=== PATIENT | female | born 1980 | race African-American/Black ===

== ENCOUNTER 2019-10-07 19:41 | Emergency (ER) | payer OTHER, SELFPAY ==
[2019-10-07] VITALS (11 sets, daily range): BP systolic 112–136; BP diastolic 73–85; PULSE 84–93; RESP 15–34; TEMP 36.9; O2SAT 99–100
--- NOTE | ~2019-10-07 | XR_ITS ---
EXAMINATION: XR chest 1V portable DATE: 10/07/2019 20:32 INDICATION: Chest tightness, cough and COVID 19 positive TECHNIQUE: frontal view of the chest was obtained. COMPARISON: Chest radiograph dated 03/10/2019 FINDINGS: Mild perihilar opacities with bronchial wall thickening. No focal airspace consolidation, pleural eff usion or pneumothorax. The cardiomediastinal silhouette is normal. Visualized bones and soft tissues are unremarkable. IMPRESSION: 1. Mild perihilar opacities with bronchial wall thickening with differential including bronchitis, re active airway disease, minimal pulmonary edema or pneumonia although COVID 19 associated pneumonia mo re typically presents with peripheral patchy opacities. Reviewed, dictated and finalized at location A. IMPRESSION: 1. Mild perihilar opacities with bronchial wall thickening with differential in cluding bronchitis, reactive airway disease, minimal pulmonary edema or pneumon ia although COVID 19 associated pneumonia more typically presents with peripher al patchy opacities.
--- NOTE | 2019-10-07 20:08 | ECG_ITS ---
Measurements Intervals [place] Rate: 85 P: 42 DC: 197 QRS: 30 QRSD: 89 T: 9 QT: 354 QTc: 423 Interpretive Statements SINUS RHYTHM BORDERLINE T WAVE ABNORMALITY- ANT/INF LEADS BASELINE ARTIFACT- I, II, III, AVR, AVL BORDERLINE ECG Electronically Signed On 10-08-2019 6:57:30 CDT by Jamie Mac D.O.
--- NOTE | 2019-10-07 20:16 | ED.ASTHMA ---
HPI - Asthma General Chief Complaint: Asthma <Sydney Mejia PA-C - Last Filed: 10/07/19 21:39> Stated Complaint: Asthma, chest tightness, cough <Sydney Mejia PA-C - Last Filed: 10/07/19 21:39> Time Seen by Provider: 10/07/19 20:00 <Sydney Mejia PA-C - Last Filed: 10/07/19 21:39> Source: patient <DEVON Lea Last Filed: 10/07/19 21:39> Mode of arrival: ambulatory <DEVON Lea Last Filed: 10/07/19 21:39> Limitations: no limitations <Sydney Mejia PA-C - Last Filed: 10/07/19 21:39> History of Present Illness HPI Narrative: This is a 38-year-old female that presents to the emergency department for chest tightness x1 month. Reports she tested positive for cocaine about a month ago. Reports cough and congestion. Also reports chest tightness that has been constant since her diagnosis. Reports some intermittent right-sided chest pain as well. Reports she has been having trouble with asthma attacks. Her primary wanted her to come to the emergency department for further imaging and evaluation before she was released to go back to work. Denies fever. <Sydney Mejia PA-C - Last Filed: 10/07/19 21:39> Related Data Allergies/Adverse Reactions: Allergies Allergy/AdvReac Type Severity Reaction Status Date / Time No Known Allergies Allergy Unverified 10/07/19 19:47 <Sydney Mejia PA-C - Last Filed: 10/07/19 21:39> Review of Systems Review of Systems: Narrative: CONSTITUTIONAL: Denies fever CARDIOVASCULAR: Reports chest pain. Denies edema. RESPIRATORY: Reports cough. Denies dyspnea <Sydney Mejia PA-C - Last Filed: 10/07/19 21:39> All systems reviewed & are unremarkable except as noted in HPI and below <DEVON Lea Last Filed: 10/07/19 21:39> PMFSH Past Medical History Medical History: Medical History (Updated 10/07/19 @ 21:39 by Sydney Mejia PA-C) Abnormal uterine bleeding Anemia Asthma History of eczema Lymphadenopathy Transient ischemic attack Urinary tract infection <Sydney Mejia PA-C - Last Filed: 10/07/19 21:39> Surgical History Surgical History: Surgical History (Updated 03/10/19 @ 09:44 by Maggi Medina Panraven) History of section History of hysterectomy History of tubal ligation <Sydney Mejia PA-C - Last Filed: 10/07/19 21:39> Family History Family History: Family History (Updated 01/05/16 @ 10:12 by DOCTOR UNKNOWN) Father Family history of heart disease in male family member before age 55 Malignant neoplasm of prostate Sibling Family history of lymphoma <Sydney Mejia PA-C - Last Filed: 10/07/19 21:39> Social History Social History: Social History Smoking status: Never smoker Alcohol intake: current Gender identity (if verbalized by the patient): Female <Sydney Mejia PA-C - Last Filed: 10/07/19 21:39> Exam Narrative: Exam Narrative: GENERAL: Well-appearing, well-nourished, and in no acute distress. HEAD: Normocephalic, atraumatic. EYES: EOMI. ENT: Nares clear, no rhinorrhea or epistaxis. Mucous membranes moist. Oropharynx without tonsillar hypertrophy exudate or other lesions. Bilateral TMs pearly rubi non-bulging NECK: Supple. No adenopathy or masses. CHEST: Clear to auscultation. No respiratory distress. No wheezes rales or rhonchi HEART: Regular rate and rhythm. No murmur heard. Normal peripheral pulses. EXTREMITIES: Normal range of motion. No edema. SKIN: Warm, dry, no rash. NEURO: No focal deficits. Alert and oriented x3. PSYCH: Normal mood and affect <Sydney Mejia PA-C - Last Filed: 10/07/19 21:39> Course Vital Signs Vital signs: Vital Signs Temperature 36.9 C 10/07/19 19:48 Pulse Rate 92 10/07/19 19:48 Respiratory Rate 17 10/07/19 19:48 Blood Pressure 136/82 10/07/19 19:48 Pulse Oximetry 99 10/07/19 19:48 Temperature 3
[2019-10-07 20:20] LABS: Basophils Percent Auto 0.5 % (0.2-1.2); Eosinophils Percent Auto 0.1 % (0-4.4); Hematocrit 40.7 % (37.0-47.0); Hemoglobin 13.6 g/dL (12.0-15.0); Immature Granulocyte Absolute 0.03 K/mm3 (0.00-0.031); Immature Granulocyte Percent A 0.4 % (0-0.5); Lymphocytes Absolute Auto 2.26 K/mm3 (0.9-3.2); Lymphocytes Percent Auto 27.1 % (18.3-44.2); Mean Corpuscular HGB Conc 33.4 g/dl (32-36); Mean Corpuscular Hemoglobin 30.2 pg (26-34); Mean Corpuscular Volume 90.2 fl (80-100); Mean Platelet Volume 10.8 fl (7.4-10.4); Monocytes Absolute Auto 0.5 K/mm3 (0.1-0.6); Monocytes Percent Auto 5.6 % (2.6-8.5); Neutrophils Absolute Auto 5.5 K/mm3 (1.3-6.7); Neutrophils Percent Auto 66.3 % (45.5-73.1); Platelet Count Result 195 k/mm3 (150-375); Red Blood Count 4.51 M/mm3 (4.2-5.4); Red Cell Distribution Width 12.8 % (11.5-14.5); White Blood Count 8.3 K/mm3 (4.5-10.0)
[2019-10-07 20:31] LABS: Anion Gap 9 mmol/L (8-16); Blood Urea Nitrogen 14 mg/dL (7-17); Calcium 9.4 mg/dL (8.4-10.2); Carbon Dioxide 27 mmol/L (22-30); Chloride 100 mmol/L (98-107); Estimated CRCL calculation 111 ml/min; Estimated Glomerular Filt Rate > 60; Glucose 168 mg/dL (65-105); INR 1.1; Potassium 3.7 mmol/L (3.4-5.0); Prothrombin Time 13.7 Seconds (11.1-14.7); Sodium 136 mmol/L (137-145)
[2019-10-07 20:32] LABS: Partial Thromboplastin Time 28.5 SECONDS (22.3-36.8)
[2019-10-07 20:35] LABS: Lactic Acid Reflex 1.5 mmol/L (0.7-2.1)
[2019-10-07 20:35] LABS: Lactate Dehydrogenase 295 U/L (313-618)
[2019-10-07 20:36] LABS: D Dimer 0.27 ug/mL (<0.48)
[2019-10-07 20:43] LABS: Troponin I < 0.012 ng/mL (0.000-0.034)
[2019-10-08 13:59] LABS: SARS-CoV-2 RNA PCR Negative
== END 2019-10-07 22:09 | disposition home or self-care (01) ==
PROVIDERS: Physician Assistant; Emergency Provider Emergency Medicine
DX: U07.1 COVID-19 (principal); Z86.73 Personal history of transient ischemic attack (TIA), and cerebral infarction without residual deficits
CPT/HCPCS: 36415; 71045; 80048; 82728; 83605; 83615; 84484; 85025; 85380; 85610; 85730; 87635; 93005; 99284; C9803; U0003

== ENCOUNTER 2019-11-26 12:57 | Emergency (ER) | payer OTHER, SELFPAY ==
[2019-11-26] VITALS (10 sets, daily range): BP systolic 117–125; BP diastolic 70–79; PULSE 64–94; RESP 14–19; TEMP 36.1; O2SAT 97–100
--- NOTE | ~2019-11-26 | XR_ITS ---
EXAMINATION: XR chest 2V DATE: 11/26/2019 13:36 INDICATION: Chest pain TECHNIQUE: PA and lateral views of the chest were obtained. COMPARISON: Chest radiograph dated 10/07/2019 FINDINGS: The lungs are clear with no focal airspace opacities, pulmonary edema, pleural effusion or pneumothor ax. The cardiomediastinal silhouette is normal. Visualized bones and soft tissues are unremarkable. IMPRESSION: 1. No acute cardiopulmonary disease. Reviewed, dictated and finalized at location A.
--- NOTE | 2019-11-26 13:15 | ECG_ITS ---
Measurements Intervals [place] Rate: 79 P: 20 IA: 170 QRS: 25 QRSD: 81 T: 15 QT: 374 QTc: 430 Interpretive Statements SINUS RHYTHM EARLY PRECORDIAL R/S TRANSITION BORDERLINE T WAVE ABNORMALITY- ANTERIOR LEADS BORDERLINE ECG Electronically Signed On 11-27-2019 10:35:16 CDT by Jamie Mac D.O.
--- NOTE | 2019-11-26 13:25 | ED.CHESTPAIN ---
HPI - Chest Pain General Chief Complaint: Chest Pain Stated Complaint: CP for 3 days Time Seen by Provider: 11/26/19 13:08 Source: patient Mode of arrival: ambulatory Limitations: no limitations History of Present Illness HPI narrative: This patient is a 39 year old female with history of TIA who presents for evaluation of atypical chest pain. Patient reports intermittent nonradiating left anterior chest pain. This pain has been occuring for 3 days and she describes her pain as sharp. She does not currently have pain . She denies any associated symptoms such as diaphoresis, sob, nausea, vomiting , cough or fever She was evaluated at [facility] yesterday for her chest pain and she was discharged. She states her PCP recommended she come to [place] in case something was missed. Related Data Home Medications Medication Instructions Recorded Confirmed albuterol mcg INHALATION 11/26/19 aspirin 81 mg PO DAILY 11/26/19 fluticasone propionate [Flovent] 1 puff INHALATION BID 11/26/19 Allergies Allergy/AdvReac Type Severity Reaction Status Date / Time No Known Allergies Allergy Unverified 10/07/19 19:47 Review of Systems Review of Systems: All systems reviewed & are unremarkable except as noted in HPI and below Constitutional: Constitutional: Denies chills and Denies fever(s) Cardiovascular: Cardiovascular: Reports chest pain, Denies rapid heart rate and Denies radiating jaw, neck or arm pain Respiratory: Respiratory: Denies cough and Reports dyspnea (chronic intermittent due to asthma) Gastrointestinal: Gastrointestinal: Denies abdominal pain, Denies nausea and Denies vomiting PMFSH Past Medical History Medical History (Updated 11/26/19 @ 17:38 by Sonya Cao MD) Abnormal uterine bleeding Anemia Asthma History of eczema Lymphadenopathy Transient ischemic attack Urinary tract infection Surgical History Surgical History (Updated 03/10/19 @ 09:44 by Maggi MedinaLomaki) History of section History of hysterectomy History of tubal ligation Family History Family History (Updated 01/05/16 @ 10:12 by DOCTOR UNKNOWN) Father Family history of heart disease in male family member before age 55 Malignant neoplasm of prostate Sibling Family history of lymphoma Social History Social History Smoking status: Never smoker Alcohol intake: current Gender identity (if verbalized by the patient): Female Exam Narrative: Exam Narrative: GENERAL: Well-appearing, well-nourished, and in no acute distress. HEAD: Normocephalic, atraumatic NECK: Supple, without lymphadenopathy or mass RESPIRATORY: No respiratory distress, Airway patent, Respirations non-labored, Clear to auscultation without rales, rhonchi or wheeze HEART: Regular rate and rhythm. No murmur heard. Normal peripheral pulses. ABDOMEN: Soft, nontender, nondistended, normal active bowel sounds. No masses. No rebound or guarding, No organomegaly. EXTREMITIES: No edema, normal strength with full range of motion. SKIN: Warm, dry, normal color without rash NEURO: Alert and oriented x3. CN 2-12 grossly intact. No focal deficits. PSYCH: Normal mood and affect. Course Consultations Consultation #1: I discussed case with Dr. Melendez. He states if patient's second troponin is negative patient can be discharged for follow up as outpatient. They will arrange for stress test since she is low risk Date: 11/26/19 Time: 16:16 Vital Signs Vital signs: Vital Signs Temperature 96.9 F L 11/26/19 13:16 Pulse Rate 82 11/26/19 13:16 Respiratory Rate 15 11/26/19 13:16 Blood Pressure 117/70 11/26/19 13:16 Pulse Oximetry 99 11/26/19 13:16 Temperature 96.9 F L 11/26/19 13:16 Pulse Rate 64 11/26/19 17:44 Respiratory Rate 16 11/26/19 17:44 Blood Pressure 125/79 11/26/19 17:44 Pulse Oximetry 100 11/26/19 17:44 MDM - Chest Pain Lab
[2019-11-26] MEDS: ASPIRIN 81 MG CHEWABLE TABLET 324 MG PO (13:29)
[2019-11-26 13:30] LABS: Basophils Percent Auto 0.4 % (0.2-1.2); Eosinophils Absolute Auto 0.1 K/mm3 (0-0.3); Eosinophils Percent Auto 1.1 % (0-4.4); Hematocrit 39.1 % (37.0-47.0); Lymphocytes Absolute Auto 2.03 K/mm3 (0.9-3.2); Lymphocytes Percent Auto 45.3 % (18.3-44.2); Mean Corpuscular HGB Conc 33.2 g/dl (32-36); Mean Corpuscular Hemoglobin 30.6 pg (26-34); Mean Platelet Volume 11.4 fl (7.4-10.4); Monocytes Absolute Auto 0.4 K/mm3 (0.1-0.6); Monocytes Percent Auto 8.9 % (2.6-8.5); Neutrophils Percent Auto 44.3 % (45.5-73.1); Platelet Count Result 156 k/mm3 (150-375); Red Blood Count 4.25 M/mm3 (4.2-5.4); White Blood Count 4.5 K/mm3 (4.5-10.0)
[2019-11-26 13:41] LABS: Prothrombin Time 12.7 Seconds (11.1-14.7)
[2019-11-26 13:42] LABS: Anion Gap 8 mmol/L (8-16); Blood Urea Nitrogen 13 mg/dL (7-17); Calcium 9.4 mg/dL (8.4-10.2); Carbon Dioxide 27 mmol/L (22-30); Chloride 104 mmol/L (98-107); Estimated CRCL calculation 114 ml/min; Estimated Glomerular Filt Rate > 60; Glucose 163 mg/dL (65-105); Partial Thromboplastin Time 27.8 SECONDS (22.3-36.8); Potassium 4.3 mmol/L (3.4-5.0); Sodium 139 mmol/L (137-145)
[2019-11-26 13:55] LABS: Troponin I 0.016 ng/mL (0.000-0.034)
[2019-11-26 15:01] LABS: D Dimer 0.41 ug/mL (<0.48)
[2019-11-26 17:00] LABS: Troponin I < 0.012 ng/mL (0.000-0.034)
== END 2019-11-26 17:45 | disposition home or self-care (01) ==
PROVIDERS: Emergency Provider General Practice
DX: R07.89 Other chest pain (principal); J45.909 Unspecified asthma, uncomplicated; Z86.73 Personal history of transient ischemic attack (TIA), and cerebral infarction without residual deficits; Z79.82 Long term (current) use of aspirin; Z87.440 Personal history of urinary (tract) infections; R94.31 Abnormal electrocardiogram [ECG] [EKG]
CPT/HCPCS: 36415; 71046; 80048; 84484; 85025; 85380; 85610; 85730; 93005; 99284; A9270

== ENCOUNTER → 2021-06-05 12:30 | Outpatient (CLI) | payer OTHER, MEDICAID, SELFPAY ==
--- NOTE | ~2021-06-05 | XR_ITS ---
EXAM: XR foot RT min 3V HISTORY: bilateral foot pain for months ? etiology COMPARISON: None available FINDINGS: Normal mineralization. No fracture or dislocation. No lytic or blastic lesion. Joint space s maintained. Achilles and plantar enthesopathy. No erosion or periosteal change. Soft tissues within normal limits. IMPRESSION: No acute osseous finding in the right foot. Reviewed, dictated and finalized at location K.
--- NOTE | ~2021-06-05 | XR_ITS ---
EXAMINATION: XR foot LT min 3V EXAM DATE: 06/05/2021 13:06 INDICATION: Left heel and lateral foot pain x 3 month ? etiology. TECHNIQUE: Left foot dorsoplantar, lateral and oblique projections obtained and reviewed. There is n o prior study for comparison. FINDINGS: Left metatarsal bones unremarkable. No periosteal reaction or band of sclerosis to sugge st subacute stress fracture. Tiny inferior calcaneal spur. There are no acute fractures or dislocatio ns identified. There is no subcutaneous gas. The soft tissue is unremarkable. There are no radiop aque foreign bodies. IMPRESSION: Tiny left calcaneal inferior spur. Reviewed, dictated and finalized at location A.
== END ==
PROVIDERS: PCP Physician Assistant; Visit Provider Physician Assistant
DX: M79.671 Pain in right foot (principal); M79.672 Pain in left foot
CPT/HCPCS: 73630

== ENCOUNTER 2022-06-18 12:19 | Outpatient (CLI) | payer OTHER, MEDICAID, SELFPAY ==
--- NOTE | ~2022-06-18 | US_ITS ---
EXAMINATION: US carotid duplex BI DATE: 06/18/2022 12:57 INDICATION: Transient ischemic episode TECHNIQUE: Grayscale, color Doppler, and pulsed Doppler images of the cervical carotid arteries were obtained. The degree of vessel stenosis is placed in one of the following categories: normal, <50%, 5 0-69%, >=70% but less than near-occlusion, near-occlusion, or total occlusion. Note that percent sten osis relative to normal distal artery lumen diameter is indirectly measured from velocity measurement s as described by Ankit, et al. Radiology 2003; 229:340-346. COMPARISON: 12/28/2015 FINDINGS: RIGHT: The right common carotid artery (CCA) peak systolic velocity (PSV) is 152 cm/s. The right internal ca rotid artery (ICA) PSV is 96 cm/s. The right ICA end-diastolic velocity (EDV) is 41 cm/s. The right I CA/CCA PSV ratio is 0.6. Grayscale and color Doppler images yield an estimate of <50% diameter reduct ion from plaque in the ICA. The external carotid artery (ECA) PSV is 101 cm/s. There is antegrade wayne w in the right vertebral artery. LEFT: The left CCA PSV is 149 cm/s. The left ICA PSV is 93 cm/s. The left ICA EDV is 53 cm/s. The left ICA/ CCA PSV ratio is 0.6. Grayscale and color Doppler images yield an estimate of <50% diameter reduction from plaque in the ICA. The ECA PSV is 122 cm/s. There is antegrade flow in the left vertebral arter y. IMPRESSION: 1. <50% stenosis in the right internal carotid artery. 2. <50% stenosis in the left internal carotid artery. Reviewed, dictated and finalized at location B.
== END 2022-06-18 12:20 | disposition home or self-care (01) ==
PROVIDERS: PCP Physician Assistant; Visit Provider Internal Medicine Cardiovascular Disease
DX: I65.23 Occlusion and stenosis of bilateral carotid arteries (principal)
CPT/HCPCS: 93880

== ENCOUNTER 2022-07-26 09:30 | Emergency (ER) | payer OTHER, MEDICAID, SELFPAY ==
[2022-07-26 09:37] VITALS: BP 127/80; PULSE 91; RESP 16; TEMP 35.9; O2SAT 99
--- NOTE | 2022-07-26 10:02 | ED.URI ---
HPI - URI/Sore Throat General Chief Complaint: Upper Respiratory Infection Stated Complaint: Sore Throat/Headache Source: patient and RN notes reviewed History of Present Illness HPI Narrative: 41-year-old male presents urgent care with complaints of a sore throat and headache for last 5 days. Patient is also reporting a dry cough is keeping her up at night. Patient denies any fevers, chills, ear pain, congestion, chest pain, shortness of breath, or vomiting. Patient is taking [place] as well as ibuprofen at home. Some parts of this dictation were generated by voice recognition software and may contain typographical and/or grammatical inaccuracies. Related Data Home Medications Medication Instructions Recorded Confirmed albuterol 90 mcg/actuation aerosol 90 mcg inhalation QID PRN sob 07/26/22 07/26/22 inhaler aspirin 81 mg tablet 81 mg PO DAILY 07/26/22 07/26/22 cyclobenzaprine 5 mg tablet 5 mg PO BID PRN muscle spasms 07/26/22 07/26/22 ibuprofen 800 mg tablet 800 mg PO TID 07/26/22 07/26/22 metformin 500 mg tablet 500 mg PO BID 07/26/22 07/26/22 Allergies Allergy/AdvReac Type Severity Reaction Status Date / Time No Known Allergies Allergy Verified 07/26/22 09:38 Review of Systems Review of Systems: Pertinent positives and pertinent negatives per HPI. [facility] Past Medical History Medical History (Updated 07/26/22 @ 10:03 by Misty Koehler, QUALITY ASSURANCE/R&D LAB TECHNICIAN) Abnormal uterine bleeding Anemia Asthma History of eczema Lymphadenopathy Transient ischemic attack Urinary tract infection Surgical History Surgical History (Updated 03/10/19 @ 09:44 by CARMELO Orta) History of section History of hysterectomy History of tubal ligation Family History Family History (Updated 01/05/16 @ 10:12 by DOCTOR UNKNOWN) Father Family history of heart disease in male family member before age 55 Malignant neoplasm of prostate Sibling Family history of lymphoma Social History Social History Smoking status: Never smoker Alcohol intake: current Gender identity (if verbalized by the patient): Female Comments At the time of my signature, I reviewed and agree with the nursing past medical, surgical, social, and family history. There is no relevant family history pertinent to the patient complaint. Exam Narrative: GENERAL: This is a well-nourished, well-developed patient, in no apparent distress. HEAD: normocephalic, atraumatic. EYES: Sclera clear/white. Vision is grossly intact. EARS: External ears normal, auditory canals clear and without drainage, TMs normal without perforation. Hearing grossly intact. NOSE: External nose normal with no obvious nasal discharge, nares without redness, no rhinorrhea. THROAT: Mucous membranes moist, posterior pharynx erythemic. No exudate noted. NECK: Neck supple, non-tender without lymphadenopathy, masses or thyromegaly. CARDIOVASCULAR: Regular rate and rhythm without murmurs, gallops, or rubs. RESPIRATORY: Clear to auscultation. Breath sounds equal bilaterally. No wheezes, rales, or rhonchi. SKIN: warm, intact with no suspicious lesions or rash, good texture and turgor. NEURO: awake, alert, and oriented to person, place and time. There were no obvious focal neurologic abnormalities. EXTREMITIES: No clubbing, cyanosis, or edema. No joint tenderness, effusion, or edema noted. BACK: Nontender without deformity or crepitus. No flank tenderness. Course Course Level of Care: Express Care Visit Vital Signs Vital signs: Vital Signs Temperature 96.6 F L 07/26/22 09:37 Pulse Rate 91 07/26/22 09:37 Respiratory Rate 16 07/26/22 09:37 Blood Pressure 127/80 07/26/22 09:37 Pulse Oximetry 99 07/26/22 09:37 Oxygen Delivery Room Air 07/26/22 09:37 Temperature 96.6 F L 07/26/22 09:37 Pulse Rate 91 07/26/22 09:37 Respiratory Rate 16 07/26/22 09:37 Blood Pressure 127
== END 2022-07-26 09:40 | disposition home or self-care (01) ==
PROVIDERS: Emergency Provider Nurse Practitioner Family; PCP Physician Assistant
DX: B34.9 Viral infection, unspecified (principal); J45.909 Unspecified asthma, uncomplicated; Z86.73 Personal history of transient ischemic attack (TIA), and cerebral infarction without residual deficits; Z79.82 Long term (current) use of aspirin
CPT/HCPCS: 87081; 87880; 99213; G0463

== ENCOUNTER 2022-08-17 12:03 | Outpatient (CLI) | payer OTHER, MEDICAID, SELFPAY ==
--- NOTE | ~2022-08-17 | XR_ITS ---
Lumbosacral Spine: AP and lateral views Clinical History: Pain Findings: The normal lordotic curve is maintained. The vertebral bodies and posterior elements are i ntact. The intervertebral disc spaces are preserved. The sacroiliac joints are normally outlined. Impression: No significant abnormality. Reviewed, dictated and finalized at [facility]. Impression: No significant abnormality.
== END 2022-08-17 12:04 | disposition home or self-care (01) ==
PROVIDERS: PCP Physician Assistant; Visit Provider Physician Assistant
DX: M54.50 Low back pain, unspecified (principal)
CPT/HCPCS: 72100

== ENCOUNTER 2022-08-31 13:21 | Outpatient (CLI) | payer OTHER, MEDICAID, SELFPAY ==
--- NOTE | ~2022-08-31 | XR_ITS ---
AP and oblique views of the bilateral SI joints CLINICAL HISTORY: Back pain FINDINGS: No degenerative change of the SI joints seen. No erosive changes identified. Possible scler otic changes on the iliac side of both SI joints, left more pronounced than right. Bilateral hip join ts appear essentially intact. Soft tissues are unremarkable. IMPRESSION: Possible sclerosis on the iliac side of both SI joints, left worse than right. 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 Reviewed, dictated and finalized at location M.
== END 2022-08-31 13:22 | disposition home or self-care (01) ==
PROVIDERS: PCP Physician Assistant; Visit Provider Physician Assistant
DX: R76.8 Other specified abnormal immunological findings in serum (principal); M47.816 Spondylosis without myelopathy or radiculopathy, lumbar region
CPT/HCPCS: 72202; 97161; 97530

== ENCOUNTER 2022-09-28 12:30 | Outpatient (RCR) | payer OTHER, MEDICAID, SELFPAY ==
--- NOTE | 2022-08-31 15:33 | OPREHPOC ---
Outpatient Therapy Plan of Care This is a Multidisciplinary Plan of Care that may contain components documented by all disciplines (PT, OT, and ST.) PT Problem 1 PT Problem #1 Knowledge Deficit PT Goal 1 Goal 1* pt indep with HEP 2* pt demonstrate good body mechanics with lifting and simulated work tasks PT Problem 2 PT Problem #2 Pain PT Goal 1 Goal 1* pt report pain rating of 7/10 at worst 2* Oswestry self assessment functional score of 46 % limitation in activity PT Problem 3 PT Problem #3 Impaired Range of Motion PT Goal 1 Goal pt perform without an increase in pain reported : supine L hip motions; 1* flexion 2* IR 3* ER hamstring length with supine SLR 4* R 50' 5* L 40' PT Problem 4 PT Problem #4 Impaired Strength PT Goal 1 Goal 1* pt able to perform 30 min of aquatic exercises/ activity 2* R single leg stand 10 sec, with good stability 3* L single leg stand 10 sec, with good stability 4* pt stand without trunk rotation
--- NOTE | 2022-08-31 15:33 | PTOPEVAL1 ---
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, but pain in back increases; Reported Pain Level Pain Score Self Report Additional Pain Score Comments pain range in the past week 5-9/10; constant pain increase pain: 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 or 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; sometimes standing and walking--varies depend upon day and how pain is decrease pain: not do anything, just deal with it; take pain meds at night only- cannot take during day makes her sleepy; have not been using heat/ice ---instruct on PRN use; also muscle creams; can sleep with the pain meds; EDUCATION: discussed and educated pt on pain control techniques: heat/ ice PRN, use of muscle creams/gels, prone position, hook lying position, use of back brace for support and stability PRN with lifting and more activity; Assessment PT Clinical Summary Kiran has the diagnosis of back pain, gradual increase over the past year and has diagnosis of RA. 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 She has never had PT services for her back. Self assessment Oswestry score of 56% limitation in activity level. With the evaluation almost all standing and supine motions of trunk and hips increase pain: most pain with standing trunk extension and L supine hip motions; did have slight relief in pain with prone and hook lying positions of rest; decreased flexibility with supine L hip flexion, bilateral hamstrings, anterior hip-quad and piriformis muscles; poor standing position of trunk with increased lumbar lordosis and rotation of trunk. Skilled PT services are indicated for aquatic and land activities to decrease pain and spasms with therapeutic exercises-
--- NOTE | 2022-09-28 13:11 | PTOPDC ---
Assessment and note entered by Genesis Day, PT Evaluation Information Assessment Status Discharge Diagnosis low back pain Onset about 1 year Subjective Information Kiran reports: is going to join the fitness center to use the pool; feel like therapy has helped her back; yesterday went to [employer] with her children; has been doing the exercises; wants to stop therapy for now. Reported Pain Level Pain Score 8: Self Report Additional Pain Score Comments pain range in the past week of 3-8/10; R <L low back; increase pain: more activity decrease pain: soak in jet tub,take gabapentin, tylenol arthritis, ibuprofen, flexeril Assessment PT Clinical Summary Kiran has received 8 PT sessions, on land and in the water. Compared to the initial evaluation: pain rating has improved from 5-10/10 to 3-8/10; Self assessment Oswestry score from 56% to 26% limitation in activity level; increase flexibility of R and L hamstring; supine L hip IR and ER do not increase her pain; increased trunk and hip strength with land and aquatic exercises; she has problems with single leg standing due to knee pain; Education completed for home exercises, posture control, body mechanics, pain management with rest /activity balance. The goals were partially met. Kiran stated she wanted to stop therapy at this time--continue with her land and water exercises, she knows what to do to help her pain. Discharge PT treatments. Plan of Care PT Services Indicated No
== END 2022-09-28 15:25 | disposition home or self-care (01) ==
LOC: ANHPT 12:30
PROVIDERS: PCP Physician Assistant; Visit Provider Physician Assistant
DX: M54.50 Low back pain, unspecified (principal)
CPT/HCPCS: 97110; 97113; 97140; 97161; 97530; 97542

== ENCOUNTER 2023-08-31 21:48 | Emergency (ER) | payer OTHER, SELFPAY ==
--- NOTE | ~2023-08-31 | XR_ITS ---
EXAMINATION: XR chest 1V portable DATE: 08/31/2023 23:34 INDICATION: Chest pain TECHNIQUE: frontal view of the chest was obtained. COMPARISON: Chest radiograph dated 11/26/2019 FINDINGS: The lungs remain clear with no focal airspace opacities, pulmonary edema, pleural effusion or pneumot horax. The cardiomediastinal silhouette is normal. Visualized bones and soft tissues are unremarkable . IMPRESSION: 1. No acute cardiopulmonary disease. Reviewed, dictated and finalized at location A.
--- NOTE | 2023-08-31 21:52 | ECG_ITS ---
Test Date: 2023-08-31 21:56:04 Measurements Intervals [place] Rate: 92 P: 45 ID: [id number] QRS: 12 QRSD: 89 T: -4 QT: 357 QTc: 444 Interpretive Statements SINUS RHYTHM BORDERLINE ST-T WAVE ABNORMALITY- ANTEROLAT/INF LEADS BASELINE ARTIFACT- I, III, AVL BORDERLINE ECG No previous ECG available for comparison Electronically Signed On 09-01-2023 07:26:17 CDT by Jamie Mac D.O.
[2023-08-31 21:55] VITALS: BP 134/90; PULSE 102; RESP 20; TEMP 36.3; O2SAT 100
[2023-08-31 22:58] LABS: Basophils Percent Auto 0.6 % (0.2-1.2); Eosinophils Absolute Auto 0.1 K/mm3 (0-0.3); Eosinophils Percent Auto 1.3 % (0-4.4); Hematocrit 36.6 % (37.0-47.0); Hemoglobin 12.4 g/dL (12.0-15.0); Lymphocytes Absolute Auto 2.25 K/mm3 (0.9-3.2); Lymphocytes Percent Auto 42.9 % (18.3-44.2); Mean Corpuscular HGB Conc 33.9 g/dl (32-36); Mean Corpuscular Hemoglobin 30.9 pg (26-34); Mean Corpuscular Volume 91.3 fl (80-100); Mean Platelet Volume 11.2 fl (7.4-10.4); Monocytes Absolute Auto 0.5 K/mm3 (0.1-0.6); Monocytes Percent Auto 9.5 % (2.6-8.5); Neutrophils Absolute Auto 2.4 K/mm3 (1.3-6.7); Neutrophils Percent Auto 45.7 % (45.5-73.1); Platelet Count Result 166 k/mm3 (150-375); Red Blood Count 4.01 M/mm3 (4.2-5.4); Red Cell Distribution Width 12.8 % (11.5-14.5); White Blood Count 5.3 K/mm3 (4.5-10.0)
[2023-08-31 23:08] LABS: Alanine Aminotransferase 12 U/L (6-35); Albumin Level 4.1 g/dL (3.5-5.1); Alkaline Phosphatase 60 U/L (38-126); Anion Gap 7 mmol/L (4-12); Aspartate Amino Transferase 20 U/L (14-36); Bilirubin,Total 0.5 mg/dL (0.2-1.3); Blood Urea Nitrogen 7 mg/dL (7-17); Calcium 9.2 mg/dL (8.4-10.2); Carbon Dioxide 28 mmol/L (22-30); Chloride 103 mmol/L (98-107); Estimated CRCL calculation 94 ml/min; Estimated Glomerular Filt Rate > 60; Glucose 115 mg/dL (65-110); Potassium 3.6 mmol/L (3.4-5.0); Sodium 138 mmol/L (137-145)
[2023-08-31 23:19] LABS: D Dimer 0.33 ug/mL (<0.48)
[2023-08-31 23:20] LABS: Troponin I < 0.012 ng/mL (0.000-0.034)
--- NOTE | 2023-08-31 23:52 | ED.GENADULT ---
HPI - General Adult General Chief complaint: Nausea/Vomiting/Diarrhea Stated complaint: vomiting Time Seen by Provider: 08/31/23 22:02 History of Present Illness HPI narrative: 42-year-old female presenting to the emergency department for evaluation after an episode of chest pain. Patient states she was at home watching TV when she had onset chest pain that lasted just a few minutes. Patient felt that she had some rapid heart rate at the time and did have a subsequent episode of nausea. Patient states 30 minutes later she had a short stabbing chest pain that quickly resolved. patient is on daily aspirin for history of DVT and TIA. Related Data Home Medications Medication Instructions Recorded Confirmed albuterol 90 mcg/actuation aerosol 90 mcg inhalation QID PRN sob 07/26/22 07/26/22 inhaler aspirin 81 mg tablet 81 mg PO DAILY 07/26/22 07/26/22 cyclobenzaprine 5 mg tablet 5 mg PO BID PRN muscle spasms 07/26/22 07/26/22 ibuprofen 800 mg tablet 800 mg PO TID 07/26/22 07/26/22 metformin 500 mg tablet 500 mg PO BID 07/26/22 07/26/22 Allergies Allergy/AdvReac Type Severity Reaction Status Date / Time No Known Allergies Allergy Verified 08/31/23 21:58 Review of Systems Review of Systems: All systems reviewed & are unremarkable except as noted in HPI and below PMFSH Past Medical History Medical History (Updated 08/31/23 @ 23:56 by Ace Payton MD) Abnormal uterine bleeding Anemia Asthma History of eczema Lymphadenopathy Transient ischemic attack Urinary tract infection Surgical History Surgical History (Updated 03/10/19 @ 09:44 by [employer]gi [employer]) History of section History of hysterectomy History of tubal ligation Family History Family History (Updated 01/05/16 @ 10:12 by DOCTOR UNKNOWN) Father Family history of heart disease in male family member before age 55 Malignant neoplasm of prostate Sibling Family history of lymphoma Social History Social History Smoking status: Never smoker Alcohol intake: current Gender identity (if verbalized by the patient): Female Exam Narrative: APPEARANCE: Well appearing, no pain, no distress, well-nourished. HEAD: normocephalic, atraumatic. EYES: PERRLA/EOMI, conjunctivae clear. NOSE: Normal no drainage EARS:TMS clear with good light reflex. THROAT: Pharynx clear, no exudate. NECK: Supple. No adenopathy, no masses. RESPIRATORY: Airway patent, respirations nonlabored. Clear to auscultation bilaterally, no rales, rhonchi, wheezing. CARDIOVASCULAR: Regular rate and rhythm without murmurs rubs or gallops. ABDOMINAL: Soft, nontender, nondistended, normal bowel sounds MUSCULOSKELETAL: Moves all extremities. Strength/ROM intact, No edema, No calf tenderness. NEURO: Alert. Cranial nerves II through XII intact. grossly intact SKIN: Warm, dry. Normal Color Course Course Emergency Course: patient was at the results of her workup patient was encouraged close follow-up with primary care physician. Vital Signs Vital signs: Vital Signs Temperature 97.4 F L 08/31/23 21:55 Pulse Rate 102 H 08/31/23 21:55 Respiratory Rate 20 08/31/23 21:55 Blood Pressure 134/90 08/31/23 21:55 Pulse Oximetry 100 08/31/23 21:55 Oxygen Delivery Room Air 08/31/23 21:55 Temperature 97.4 F L 08/31/23 21:55 Pulse Rate 102 H 08/31/23 21:55 Respiratory Rate 20 08/31/23 21:55 Blood Pressure 134/90 08/31/23 21:55 Pulse Oximetry 100 08/31/23 21:55 Oxygen Delivery Room Air 08/31/23 21:55 Medical Decision Making MDM Narrative Medical decision making narrative: 42-year-old female presents To the emergency department for evaluation of an episode of chest pain. Patient has been chest pain and chest tightness pain-free while emergency department. Patient is afebrile with no leukocytosis and stable hemoglobin 12.4. Patient has no acute abnormalitie
== END 2023-09-01 00:06 | disposition home or self-care (01) ==
PROVIDERS: Emergency Provider Emergency Medicine; PCP Physician Assistant
DX: Z79.82 Long term (current) use of aspirin (principal); R07.9 Chest pain, unspecified
CPT/HCPCS: 36415; 71045; 80053; 84484; 85025; 85380; 93005; 99284